=== PATIENT | female | born 1965 | race Caucasian/White ===

== ENCOUNTER → 2016-11-29 | Outpatient (CLI) | payer MEDICARE ==
[~2016-11-29] MED LIST: ADULT LOW DOSE81 MG PO; AMITRIPTYLINE H10 MG PO; ASPIR 8181 MG PO; ASPIR-LOW81 MG PO; COREG 3.125M3.125 MG PO; COREG CR10 MG PO; IMDUR ER TAB 3030 MG PO; LASIX40 MG PO; LIPITOR TAB 1010 MG PO; LIPITOR TAB 2020 MG PO; LIPITOR40 MG PO; LISINOPRIL10 MG PO; NITROSTAT0.4 MG PO; NORVASC 5 MG TAB5 MG PO; NORVASC10 MG PO; PLAVIX 75 MG TA75 MG PO; PLAVIX75 MG PO; PROTONIX40 MG PO; PROZAC20 MG PO; SYNTHROID125 MCG PO; SYNTHROID300 MCG PO; TOPROL XL 50 MG50 MG PO; TRAZODONE HCL50 MG PO; ZESTRIL20 MG PO
== END ==
LOC: RAD 08:30
DX: R13.14 Dysphagia, pharyngoesophageal phase (principal); K22.4 Dyskinesia of esophagus; K44.9 Diaphragmatic hernia without obstruction or gangrene; K21.9 Gastro-esophageal reflux disease without esophagitis
CPT/HCPCS: 74220